=== PATIENT | male | born 1965 | race Caucasian/White ===

== ENCOUNTER 2017-03-31 09:02 | Emergency (ER) | payer MEDICARE, OTHER ==
[~2017-03-31] VITALS: Ht 172.7 cm; Wt 99.8 kg
[2017-03-31 09:02] VITALS: BP_SYST 135
[~2017-03-31 09:02] MED LIST: ALBMDI INH; AMPH20CA7 PO; ASPI-859 PO; ATEN-166 PO; ATOR40TA68 PO; CARB200T PO; CYM30 PO; LOSA100T11 PO; LYR25 PO; OMEP20CA10 PO; TRAZ-126 PO; VIS50 PO; ZIPR20CA2 PO
[2017-03-31] MEDS ORDERED: OLAN5TAB26 PO (10:08)
[2017-03-31] MEDS ORDERED: GLU500 PO (10:08)
[2017-03-31] MEDS ORDERED: ADDERALL PO (10:08)
[2017-03-31 11:30] VITALS: BP_SYST 130
== END 2017-03-31 11:30 | disposition home or self-care (01) ==
LOC: SED 09:02
DX: M25.551 Pain in right hip (principal); L98.9 Disorder of the skin and subcutaneous tissue, unspecified; J44.9 Chronic obstructive pulmonary disease, unspecified; K21.9 Gastro-esophageal reflux disease without esophagitis; I10 Essential (primary) hypertension; E13.29 Other specified diabetes mellitus with other diabetic kidney complication; N28.9 Disorder of kidney and ureter, unspecified; Z79.82 Long term (current) use of aspirin; Z79.899 Other long term (current) drug therapy; Z91.041 Radiographic dye allergy status; Z86.19 Personal history of other infectious and parasitic diseases; V47.5XXA Car driver injured in collision with fixed or stationary object in traffic accident, initial encounter; Y93.89 Activity, other specified; Y92.410 Unspecified street and highway as the place of occurrence of the external cause; Y99.8 Other external cause status
CPT/HCPCS: 72192-TC; 99284

== ENCOUNTER 2018-09-09 05:04 | Emergency (ER) | payer MEDICARE, MEDICAID, OTHER ==
[~2018-09-09] VITALS: Ht 172.7 cm; Wt 88.5 kg
[~2018-09-09 05:04] MED LIST changes: +ADDERALL PO; -ALBMDI INH; -AMPH20CA7 PO; +GLU500 PO; -LOSA100T11 PO; +LOSA100T3 PO; +OLAN5TAB26 PO; -VIS50 PO; -ZIPR20CA2 PO
[2018-09-09] MEDS ORDERED: NACL 0.9% 1,000 ML IV ONE (05:05)
[2018-09-09 05:10] VITALS: BP_SYST 153
[2018-09-09] MEDS ORDERED: ASPIRIN 81 MG TAB.CHEW PO ONE (05:15)
[2018-09-09] MEDS ORDERED: LORazepam 2 MG/ML VIAL (FOR ER USE) IVP ONE ×2 (05:30→07:45)
[2018-09-09 05:54] LABS: BASOPHILS # (AUTO) 0.1 K/uL (0.0-0.2); BASOPHILS % (AUTO) 0.9 % (0.0-2.0); EOSINOPHILS # (AUTO) 0.1 K/uL (0.0-0.4); EOSINOPHILS % (AUTO) 1.2 % (0.0-4.0); HEMATOCRIT 47.6 % (36-54); HEMOGLOBIN 15.9 g/dL (14.0-18.0); LYMPHOCYTES # (AUTO) 1.7 K/uL (1.0-5.5); LYMPHOCYTES % (AUTO) 24.9 % (20.5-51.5); MEAN CORPUSCULAR HEMOGLOBIN 30 pg (27-31); MEAN CORPUSCULAR HGB CONC 34 % (32-36); MEAN CORPUSCULAR VOLUME 91 fL (79.0-98.0); MONOCYTES # (AUTO) 0.4 K/uL (0.0-1.0); MONOCYTES % (AUTO) 6.2 % (1.7-9.3); NEUTROPHILS # (AUTO) 4.4 K/uL (1.8-7.7); NEUTROPHILS % (AUTO) 66.8 % (40.0-70.0); PLATELET COUNT (AUTO) 182 K/uL (130-430); RED BLOOD CELL COUNT(AUTO) 5.26 MIL/uL (4.2-6.2); RED CELL DISTRIBUTION WIDTH 12.3 % (9.0-15.0); WHITE BLOOD COUNT (AUTO) 6.7 K/uL (4.8-10.8)
[2018-09-09 06:04] LABS: ANION GAP 10 (5-15); CALCIUM 9.4 mg/dL (8.4-11.0); CHLORIDE 104 mmol/L (98-107); CREATININE 0.82 mg/dL (0.55-1.30); GLUCOSE 159 mg/dL (70-99); POTASSIUM 3.8 mmol/L (3.5-5.1); SODIUM SERUM 140 mmol/L (136-145); UREA NITROGEN, BLOOD 14 mg/dL (8-21)
[2018-09-09 06:07] LABS: GFR AFRICAN AMERICAN 125 mL/min (>90)
[2018-09-09 06:22] LABS: ALANINE AMINOTRANSFERASE 28 U/L (12-78); ALBUMIN 3.6 g/dL (3.4-4.8); ASPARTATE AMINOTRANSFERASE 24 U/L (10-37); TOTAL BILIRUBIN 0.3 mg/dL (0.0-1.0)
[2018-09-09 06:28] LABS: ACETAMINOPHEN < 1 ug/mL (1-30); ALCOHOL, BLOOD < 3 mg/dL (<10)
[2018-09-09 08:20] LABS: BARBITURATE, URINE NEGATIVE (NEG <=200); BENZODIAZEPINE, URINE POSITIVE (NEG <=150); CANNABINOID, URINE POSITIVE (NEG <=50); COCAINE, URINE NEGATIVE (NEG <=150); METHAMPHETAMINES SCREEN,URINE NEGATIVE (NEG <=500); OPIATE, URINE NEGATIVE (NEG <=100); PHENCYCLIDINE SCREEN,URINE NEGATIVE (NEG <=25); URINE AMPHETAMINE POSITIVE (NEG <=500); URINE METHADONE NEGATIVE (NEG <=200); URINE OXYCODONE SCREEN NEGATIVE (NEG <=100); URINE PROPOXYPHENE SCREEN NEGATIVE (NEG <=300)
[2018-09-09 08:21] LABS: UR TRICYCLIC ANTIDEPRESSANTS NEGATIVE (NEG <=300)
[2018-09-09 08:45] VITALS: BP_SYST 159
== END 2018-09-09 08:45 | disposition short-term general hospital (02) ==
LOC: SED 05:04
DX: R07.89 Other chest pain (principal); K21.9 Gastro-esophageal reflux disease without esophagitis; I12.9 Hypertensive chronic kidney disease with stage 1 through stage 4 chronic kidney disease, or unspecified chronic kidney disease; E11.22 Type 2 diabetes mellitus with diabetic chronic kidney disease; N18.9 Chronic kidney disease, unspecified; F41.9 Anxiety disorder, unspecified; F32.9 Major depressive disorder, single episode, unspecified; F43.10 Post-traumatic stress disorder, unspecified; Z86.19 Personal history of other infectious and parasitic diseases; Z79.899 Other long term (current) drug therapy; Z86.79 Personal history of other diseases of the circulatory system
CPT/HCPCS: 36415; 71045; 80053; 80307; 84484; 85025; 93005; 96374; 96376; 99285; G0480; G0481; G0482; J2060; J7030; 99284

== ENCOUNTER 2018-11-05 22:35 | Emergency (ER) | payer MEDICARE, OTHER ==
[~2018-11-05] VITALS: Ht 172.7 cm; Wt 86.2 kg
[~2018-11-05 22:35] MED LIST changes: -TRAZ-126 PO; +TRAZ-219 PO
[2018-11-05 22:40] VITALS: BP_SYST 141
--- NOTE | 2018-11-05 22:55 | NUR ---
9226 - Patient to ER bed 3 to gown for evaluation. Side rails up.
[2018-11-05] MEDS ORDERED: BACITRACIN 1 GM OINT TP ONE (23:00)
[2018-11-05] MEDS ORDERED: LIDOCAINE 1% 10 MG/ML, 20 ML MDV IJ ONE (23:00)
--- NOTE | 2018-11-05 23:05 | NUR ---
2305 - ER at bedside examining patient.
--- NOTE | 2018-11-05 23:10 | NUR ---
[id number] - Patient given written and verbal discharge instructions and verbalizes understanding. ER MD discussed with patient the results and treatment provided. Patient in stable condition. ID arm band removed. IV catheter removed intact and dressing applied, no active bleeding. Rx of keflex, tylenol given. Patient educated on pain management and to follow up with PMD. Opportunity for questions provided and answered. Medication side effect fact sheet provided. AMbulatory w/ steady gait, A&OX4
[2018-11-05 23:15] VITALS: BP_SYST 141
== END 2018-11-05 23:15 | disposition home or self-care (01) ==
LOC: SED 22:35
DX: L02.212 Cutaneous abscess of back [any part, except buttock and flank] (principal); L73.9 Follicular disorder, unspecified; J44.9 Chronic obstructive pulmonary disease, unspecified; K21.9 Gastro-esophageal reflux disease without esophagitis; E11.9 Type 2 diabetes mellitus without complications; I10 Essential (primary) hypertension; F41.9 Anxiety disorder, unspecified; F32.9 Major depressive disorder, single episode, unspecified; Z86.19 Personal history of other infectious and parasitic diseases; Z86.79 Personal history of other diseases of the circulatory system; Z79.899 Other long term (current) drug therapy
CPT/HCPCS: 10060; 99283; J2001

== ENCOUNTER 2019-01-05 07:20 | Emergency (ER) | payer MEDICARE, OTHER ==
[~2019-01-05] VITALS: Ht 172.7 cm; Wt 77.1 kg
[2019-01-05 07:20] VITALS: BP_SYST 161
[2019-01-05] MEDS ORDERED: KETOROLAC TROMETHAMINE 30 MG VIAL IVP ONE (07:45)
[2019-01-05] MEDS ORDERED: NACL 0.9% 1,000 ML IV ONE (07:45)
[2019-01-05 08:08] LABS: BASOPHILS % (AUTO) 0.3 % (0.0-2.0); EOSINOPHILS % (AUTO) 0.2 % (0.0-4.0); HEMATOCRIT 35.5 % (36-54); HEMOGLOBIN 12.1 g/dL (14.0-18.0); LYMPHOCYTES # (AUTO) 0.9 K/uL (1.0-5.5); LYMPHOCYTES % (AUTO) 8.5 % (20.5-51.5); MEAN CORPUSCULAR HEMOGLOBIN 30 pg (27-31); MEAN CORPUSCULAR HGB CONC 34 % (32-36); MEAN CORPUSCULAR VOLUME 88 fL (79.0-98.0); MONOCYTES # (AUTO) 0.7 K/uL (0.0-1.0); MONOCYTES % (AUTO) 7.4 % (1.7-9.3); NEUTROPHILS # (AUTO) 8.4 K/uL (1.8-7.7); NEUTROPHILS % (AUTO) 83.6 % (40.0-70.0); PLATELET COUNT (AUTO) 118 K/uL (130-430); RED BLOOD CELL COUNT(AUTO) 4.03 MIL/uL (4.2-6.2); RED CELL DISTRIBUTION WIDTH 13.1 % (9.0-15.0); WHITE BLOOD COUNT (AUTO) 10.1 K/uL (4.8-10.8)
[2019-01-05 08:33] LABS: CALCIUM 9.3 mg/dL (8.4-11.0); CREATININE 0.62 mg/dL (0.55-1.30); POTASSIUM 3.6 mmol/L (3.5-5.1)
[2019-01-05 08:37] LABS: ALBUMIN 2.8 g/dL (3.4-4.8); TOTAL BILIRUBIN 0.7 mg/dL (0.0-1.0)
[2019-01-05 09:25] LABS: BILIRUBIN,URINE NEGATIVE (NEGATIVE); BLOOD, URINE NEGATIVE (NEGATIVE); CLARITY/URINE CLEAR (CLEAR); COLOR,URINE YELLOW (YELLOW); GLUCOSE,URINE NEGATIVE (NEGATIVE); KETONES,URINE 2+ (NEGATIVE); LEUKOCYTE ESTERASE ,URINE NEGATIVE (NEGATIVE); NITRITE, URINE NEGATIVE (NEGATIVE); PROTEIN URINE 1+ (NEGATIVE); UROBILINOGEN,URINE 0.2 (0.2-1.0)
[2019-01-05] MEDS ORDERED: MAGNESIUM SULFATE 1 GM in NS 100 ML IV ONE (09:30)
[2019-01-05] MEDS ORDERED: MAGNESIUM SULFATE 1 GM/2 ML VIAL ONE (09:36)
[2019-01-05 09:41] LABS: BACTERIA,URINE FEW /HPF (None Seen); MUCUS,URINE 1+ /LPF (None Seen); RBC,URINE 0-3 /HPF (0-3); WBC,URINE 0-3 /HPF (0-3)
[2019-01-05] MEDS ORDERED: POTASSIUM CHLORIDE 20 MEQ TAB.PRT.SR PO ONE (09:45)
[2019-01-05 11:27] VITALS: BP_SYST 155
== END 2019-01-05 11:27 | disposition home or self-care (01) ==
LOC: SED 07:20
DX: R25.2 Cramp and spasm (principal); J44.9 Chronic obstructive pulmonary disease, unspecified; I11.9 Hypertensive heart disease without heart failure; F32.9 Major depressive disorder, single episode, unspecified; F41.9 Anxiety disorder, unspecified; Z79.84 Long term (current) use of oral hypoglycemic drugs; Z79.899 Other long term (current) drug therapy
CPT/HCPCS: 36415; 80053; 81000; 83690; 83735; 85025; 96365; 96375; 99283; J1885; J3475; J7030

== ENCOUNTER 2019-05-26 19:29 | Emergency (ER) | payer MEDICARE, OTHER ==
[~2019-05-26] VITALS: Ht 172.7 cm; Wt 86.2 kg
[~2019-05-26 19:29] MED LIST changes: -OMEP20CA10 PO; +OMEP20CA11 PO
[2019-05-26 19:40] VITALS: BP_SYST 140
--- NOTE | 2019-05-26 19:40 | NUR ---
Pt ambulatory to bed 8 for evaluation
--- NOTE | 2019-05-26 19:50 | NUR ---
Patient presents to ER for complaint of right thigh/groin 8/10 pain x 4 days. Patient states limited movement to site and states no recent injury to site. Patient also states that he has previously had 2 tumors removed from same site but in unable to provide dates. Patient states he recently had ultrasound to site but states "I am messed up, ma'am, during the war, I just know there is something wrong". Patient has hx of PTSD, hypercholesteremia, HTN, and DM. No other symptoms or complaints.
[2019-05-26] MEDS ORDERED: PREG100C54 PO (20:12)
[2019-05-26] MEDS ORDERED: BUSP10TA3 PO (20:14)
[2019-05-26] MEDS ORDERED: DICL100G19 TP (20:17)
[2019-05-26] MEDS ORDERED: ALBU8.5H8 INH (20:18)
[2019-05-26] MEDS ORDERED: DEXT30DR6 EACH EYE (20:18)
[2019-05-26] MEDS ORDERED: OMEG-143 PO (20:20)
[2019-05-26] MEDS ORDERED: AMPH30CA7 PO (20:20)
--- NOTE | 2019-05-26 20:20 | NUR ---
GRAHAM Escalera at bedside for medical evaluation.
[2019-05-26] MEDS ORDERED: [UNRECOGNIZED DRUG - OTHER] PO (20:22)
[2019-05-26] MEDS ORDERED: VITA1CAP PO (20:23)
[2019-05-26] MEDS ORDERED: MULT-1238 PO (20:24)
[2019-05-26] MEDS ORDERED: CHOL500013 PO (20:24)
[2019-05-26] MEDS ORDERED: MILK1TAB PO (20:25)
[2019-05-26] MEDS ORDERED: [UNRECOGNIZED DRUG - OTHER] PO (20:26)
[2019-05-26 20:57] LABS: BASOPHILS % (AUTO) 0.4 % (0.0-2.0); EOSINOPHILS # (AUTO) 0.1 K/uL (0.0-0.4); EOSINOPHILS % (AUTO) 1.3 % (0.0-4.0); HEMATOCRIT 45.8 % (36-54); HEMOGLOBIN 15.7 g/dL (14.0-18.0); LYMPHOCYTES # (AUTO) 2.3 K/uL (1.0-5.5); LYMPHOCYTES % (AUTO) 37.5 % (20.5-51.5); MEAN CORPUSCULAR HEMOGLOBIN 30 pg (27-31); MEAN CORPUSCULAR HGB CONC 34 % (32-36); MEAN CORPUSCULAR VOLUME 87 fL (79.0-98.0); MONOCYTES # (AUTO) 0.5 K/uL (0.0-1.0); MONOCYTES % (AUTO) 8.5 % (1.7-9.3); NEUTROPHILS # (AUTO) 3.2 K/uL (1.8-7.7); NEUTROPHILS % (AUTO) 52.3 % (40.0-70.0); PLATELET COUNT (AUTO) 177 K/uL (130-430); RED BLOOD CELL COUNT(AUTO) 5.25 MIL/uL (4.2-6.2); RED CELL DISTRIBUTION WIDTH 13.9 % (9.0-15.0); WHITE BLOOD COUNT (AUTO) 6.1 K/uL (4.8-10.8)
[2019-05-26 21:04] LABS: CALCIUM 9.5 mg/dL (8.4-11.0); CREATININE 0.89 mg/dL (0.55-1.30); POTASSIUM 3.8 mmol/L (3.5-5.1)
[2019-05-26 21:10] LABS: ALBUMIN 3.9 g/dL (3.4-4.8); TOTAL BILIRUBIN 0.6 mg/dL (0.0-1.0)
[2019-05-26] MEDS ORDERED: OXYCODONE/ACETAMINOPHEN 5-325 TABLET PO ONE (21:30)
--- NOTE | 2019-05-26 21:48 | NUR ---
Medication dispensed to patient by MD Escalera. Patient instructed to take medication once he gets home. Patient verbalized understanding.
[2019-05-26 21:58] VITALS: BP_SYST 132
--- NOTE | 2019-05-26 21:58 | NUR ---
Patient given written and verbal discharge instructions and verbalizes understanding. ER MD discussed with patient the results and treatment provided. Patient in stable condition. ID arm band removed. No Rx given. Patient educated on pain management and to follow up with PMD. Pain Scale 2/10 tolerable to patient. Opportunity for questions provided and answered.
== END 2019-05-26 21:58 | disposition home or self-care (01) ==
LOC: SED 19:29
DX: D17.24 Benign lipomatous neoplasm of skin and subcutaneous tissue of left leg (principal); J44.9 Chronic obstructive pulmonary disease, unspecified; K21.9 Gastro-esophageal reflux disease without esophagitis; I12.9 Hypertensive chronic kidney disease with stage 1 through stage 4 chronic kidney disease, or unspecified chronic kidney disease; E11.22 Type 2 diabetes mellitus with diabetic chronic kidney disease; N18.9 Chronic kidney disease, unspecified; F41.9 Anxiety disorder, unspecified; F32.9 Major depressive disorder, single episode, unspecified; F43.10 Post-traumatic stress disorder, unspecified; Z86.19 Personal history of other infectious and parasitic diseases; Z86.79 Personal history of other diseases of the circulatory system; Z79.899 Other long term (current) drug therapy
CPT/HCPCS: 36415; 80053; 85025; 99283

== ENCOUNTER 2019-07-03 03:59 | Emergency (ER) | payer MEDICARE, OTHER ==
[~2019-07-03] VITALS: Ht 172.7 cm; Wt 81.6 kg
[~2019-07-03 03:59] MED LIST changes: -ADDERALL PO; +ALBU8.5H8 INH; +AMPH30CA7 PO; +BUSP10TA3 PO; +CHOL500013 PO; +DEXT30DR6 EACH EYE; +DICL100G19 TP; -LYR25 PO; +MILK1TAB PO; +MULT-1238 PO; -OLAN5TAB26 PO; +OMEG-143 PO; +PREG100C54 PO; +VITA1CAP PO; +[UNRECOGNIZED DRUG - OTHER] PO; +[UNRECOGNIZED DRUG - OTHER] PO
[2019-07-03 04:03] VITALS: BP_SYST 140
--- NOTE | 2019-07-03 04:05 | NUR ---
Patient to ER bed 3 for evaluation. Side rails up.
--- NOTE | 2019-07-03 04:30 | NUR ---
Patient left without being seen at this time.
== END 2019-07-03 04:30 | disposition left against medical advice (07) ==
LOC: SED 03:59
DX: M54.2 Cervicalgia (principal); Z53.21 Procedure and treatment not carried out due to patient leaving prior to being seen by health care provider

== ENCOUNTER 2019-12-16 04:35 | Emergency (ER) | payer MEDICARE, OTHER ==
[~2019-12-16] VITALS: Ht 177.8 cm; Wt 88.5 kg
[2019-12-16 04:35] VITALS: BP_SYST 142
[2019-12-16] MEDS ORDERED: NACL 0.9% 1,000 ML IV ONE (04:39)
[2019-12-16] MEDS ORDERED: DIPHENHYDRAMINE INJ 50 MG/ML VIAL IVP ONE ×2 (04:45→05:45)
[2019-12-16] MEDS ORDERED: ONDANSETRON HCL 4 MG/2 ML VIAL IVP ONE (04:45)
[2019-12-16] MEDS ORDERED: MORPHINE 4 MG/ML INJ. SYRINGE IVP ONE (04:45)
[2019-12-16 05:07] LABS: BASOPHILS % (AUTO) 0.4 % (0.0-2.0); EOSINOPHILS # (AUTO) 0.1 K/uL (0.0-0.4); EOSINOPHILS % (AUTO) 1.5 % (0.0-4.0); HEMATOCRIT 39.7 % (36-54); HEMOGLOBIN 13.7 g/dL (14.0-18.0); LYMPHOCYTES # (AUTO) 1.2 K/uL (1.0-5.5); LYMPHOCYTES % (AUTO) 20.3 % (20.5-51.5); MEAN CORPUSCULAR HEMOGLOBIN 30 pg (27-31); MEAN CORPUSCULAR HGB CONC 34 % (32-36); MEAN CORPUSCULAR VOLUME 88 fL (79.0-98.0); MONOCYTES # (AUTO) 0.8 K/uL (0.0-1.0); MONOCYTES % (AUTO) 13.4 % (1.7-9.3); NEUTROPHILS # (AUTO) 3.7 K/uL (1.8-7.7); NEUTROPHILS % (AUTO) 64.4 % (40.0-70.0); PLATELET COUNT (AUTO) 265 K/uL (130-430); RED BLOOD CELL COUNT(AUTO) 4.51 MIL/uL (4.2-6.2); RED CELL DISTRIBUTION WIDTH 13.1 % (9.0-15.0); WHITE BLOOD COUNT (AUTO) 5.7 K/uL (4.8-10.8)
[2019-12-16] MEDS ORDERED: TRAZ-219 PO (05:07)
[2019-12-16] MEDS ORDERED: ALBU90AE PO (05:07)
[2019-12-16] MEDS ORDERED: POLY15DR31 BOTH EYES (05:07)
[2019-12-16] MEDS ORDERED: PREG300C PO (05:07)
[2019-12-16] MEDS ORDERED: HYDR50TA61 PO (05:07)
[2019-12-16] MEDS ORDERED: AMPH30CA7 PO (05:07)
[2019-12-16] MEDS ORDERED: INHA1EAC9 MC (05:07)
[2019-12-16] MEDS ORDERED: CARB200C4 PO ×2 (05:07)
[2019-12-16] MEDS ORDERED: METF500T20 PO (05:07)
[2019-12-16] MEDS ORDERED: BRI.2% LEFT EYE (05:07)
[2019-12-16] MEDS ORDERED: OMEP-268 PO (05:07)
[2019-12-16] MEDS ORDERED: [UNRECOGNIZED DRUG - OTHER] PO (05:07)
[2019-12-16] MEDS ORDERED: MENS MULTIVITAMIN PO (05:07)
[2019-12-16] MEDS ORDERED: DETOX PO (05:07)
[2019-12-16] MEDS ORDERED: [UNRECOGNIZED DRUG - OTHER] PO (05:07)
[2019-12-16] MEDS ORDERED: [UNRECOGNIZED DRUG - CODE] PO (05:07)
[2019-12-16] MEDS ORDERED: DULO60CA65 PO (05:07)
[2019-12-16] MEDS ORDERED: OMEG1CAP18 PO (05:07)
[2019-12-16] MEDS ORDERED: BUSP15TA3 PO (05:07)
[2019-12-16] MEDS ORDERED: LIP40 PO (05:07)
[2019-12-16] MEDS ORDERED: VITA1CAP PO (05:07)
[2019-12-16] MEDS ORDERED: CHOL50004 PO (05:07)
[2019-12-16] MEDS ORDERED: LOSA100T23 PO (05:07)
[2019-12-16] MEDS ORDERED: DICL100G19 TP (05:07)
[2019-12-16] MEDS ORDERED: [UNRECOGNIZED DRUG - OTHER] PO (05:07)
[2019-12-16] MEDS ORDERED: LATA7.5D BOTH EYES (05:07)
[2019-12-16] MEDS ORDERED: MORPHINE 2 MG/ML INJ. SYRINGE IVP ONE (05:45)
[2019-12-16] MEDS ORDERED: LORazepam 2 MG/ML VIAL IVP ONE (06:00)
[2019-12-16 06:10] LABS: CALCIUM 9.3 mg/dL (8.4-11.0); CREATININE 0.72 mg/dL (0.55-1.30); POTASSIUM 4.2 mmol/L (3.5-5.1)
[2019-12-16 06:14] LABS: ALBUMIN 3.1 g/dL (3.4-4.8); TOTAL BILIRUBIN 0.4 mg/dL (0.0-1.0)
[2019-12-16] MEDS ORDERED: KETOROLAC TROMETHAMINE 15 MG VIAL IVP ONE (06:30)
[2019-12-16 07:28] VITALS: BP_SYST 136
[2019-12-16] MEDS ORDERED: HYDROcodone/ACETAMIN 10-325 MG TAB PO ONE (09:00)
== END 2019-12-16 07:28 | disposition home or self-care (01) ==
LOC: SED 04:35
DX: S16.1XXA Strain of muscle, fascia and tendon at neck level, initial encounter (principal); I10 Essential (primary) hypertension; E11.9 Type 2 diabetes mellitus without complications; F32.9 Major depressive disorder, single episode, unspecified; F41.9 Anxiety disorder, unspecified; Z88.8 Allergy status to other drugs, medicaments and biological substances; W06.XXXA Fall from bed, initial encounter; Y93.89 Activity, other specified; Y92.89 Other specified places as the place of occurrence of the external cause; Y99.8 Other external cause status
CPT/HCPCS: 36415; 72125; 80053; 85025; 96374; 96375; 96376; 99284; J1200; J1885; J2060; J2270 ×2; J2405; J7030; 99283

== ENCOUNTER 2019-12-16 17:26 | Emergency (ER) | payer MEDICARE, OTHER ==
[~2019-12-16] VITALS: Ht 177.8 cm; Wt 88.5 kg
[~2019-12-16 17:26] MED LIST changes: +ALBU90AE PO; +BRI.2% LEFT EYE; +BUSP15TA3 PO; +CARB200C4 PO; +CHOL50004 PO; +DETOX PO; +DULO60CA65 PO; +HYDR50TA61 PO; +INHA1EAC9 MC; +LATA7.5D BOTH EYES; +LIP40 PO; +LOSA100T23 PO; +MENS MULTIVITAMIN PO; +METF500T20 PO; +OMEG1CAP18 PO; +OMEP-268 PO; +POLY15DR31 BOTH EYES; +PREG300C PO; +[UNRECOGNIZED DRUG - CODE] PO; +[UNRECOGNIZED DRUG - OTHER] PO; +[UNRECOGNIZED DRUG - OTHER] PO; +[UNRECOGNIZED DRUG - OTHER] PO
[2019-12-16 17:43] VITALS: BP_SYST 150
[2019-12-16] MEDS ORDERED: HYDROmorphone 1 MG INJ. 1 MG/ML AMPUL IVP ONE (17:45)
[2019-12-16] MEDS ORDERED: HYDROmorphone 2 MG/ML VIAL ONE (18:25)
[2019-12-16 18:49] VITALS: BP_SYST 150
== END 2019-12-16 18:55 | disposition home or self-care (01) ==
LOC: SED 17:26
DX: M54.2 Cervicalgia (principal); F41.9 Anxiety disorder, unspecified; J44.9 Chronic obstructive pulmonary disease, unspecified; E11.29 Type 2 diabetes mellitus with other diabetic kidney complication; N28.9 Disorder of kidney and ureter, unspecified; K21.9 Gastro-esophageal reflux disease without esophagitis; F09 Unspecified mental disorder due to known physiological condition; F12.90 Cannabis use, unspecified, uncomplicated; Z86.73 Personal history of transient ischemic attack (TIA), and cerebral infarction without residual deficits; Z86.19 Personal history of other infectious and parasitic diseases; Z79.899 Other long term (current) drug therapy; Z88.6 Allergy status to analgesic agent
CPT/HCPCS: 99283; J1170

== ENCOUNTER 2020-07-06 18:15 | Emergency (ER) | payer MEDICARE, OTHER ==
[~2020-07-06] VITALS: Ht 172.7 cm; Wt 91.6 kg
[~2020-07-06 18:15] MED LIST changes: -ALBU8.5H8 INH; -ASPI-859 PO; -ATEN-166 PO; -ATOR40TA68 PO; -BUSP10TA3 PO; -CARB200T PO; -CHOL500013 PO; -CYM30 PO; -DEXT30DR6 EACH EYE; -GLU500 PO; -LOSA100T3 PO; +METF-1069 PO; -METF500T20 PO; -MILK1TAB PO; -MULT-1238 PO; -OMEG-143 PO; -OMEP20CA11 PO; -PREG100C54 PO; -TRAZ-219 PO; +TRAZ-251 PO; -[UNRECOGNIZED DRUG - OTHER] PO; -[UNRECOGNIZED DRUG - OTHER] PO
--- NOTE | 2020-07-06 18:28 | NUR ---
Patient triaged and placed in waiting room. VSS and patient appears in no acute distress at this time. Accompanied by service dog, awaiting available bed, and MD notified of need for MSE.
--- NOTE | 2020-07-06 18:55 | NUR ---
Patient to ER bed 3 to gown for evaluation. Side rails up.
--- NOTE | 2020-07-06 19:20 | NUR ---
ER DR. ARREOLA AT THE BEDSIDE EVALUATING PT
[2020-07-06] MEDS ORDERED: KETOROLAC TROMETHAMINE 60 MG/2 ML VIAL IM ONE (19:30)
--- NOTE | 2020-07-06 19:30 | NUR ---
PT PRESENTS FROM HOME WITH C/O NECK PAIN ON THE RIGHT SIDE RADIATING UP TO RIGHT EAR AND RIGHT EYE. ALSO RADIATES DOWN TO RIGHT LEG AND FOOT. REPORTS HX OF NECK AND BACK SURGURY. PT IS AAOX4, V/S STABLE
[2020-07-06 20:25] VITALS: BP_SYST 136
--- NOTE | 2020-07-06 20:25 | NUR ---
Patient given written and verbal discharge instructions and verbalizes understanding. ER MD discussed with patient the results and treatment provided. Patient in stable condition. ID arm band removed. Rx of NAPROSYN given. Patient educated on pain management and to follow up with PMD. Pain Scale 2/10. Opportunity for questions provided and answered. Medication side effect fact sheet provided.
== END 2020-07-06 20:25 | disposition home or self-care (01) ==
LOC: SED 18:15
DX: S16.1XXA Strain of muscle, fascia and tendon at neck level, initial encounter (principal); F41.9 Anxiety disorder, unspecified; F09 Unspecified mental disorder due to known physiological condition; J44.9 Chronic obstructive pulmonary disease, unspecified; K21.9 Gastro-esophageal reflux disease without esophagitis; E11.29 Type 2 diabetes mellitus with other diabetic kidney complication; N28.9 Disorder of kidney and ureter, unspecified; I10 Essential (primary) hypertension; Z86.73 Personal history of transient ischemic attack (TIA), and cerebral infarction without residual deficits; Z86.19 Personal history of other infectious and parasitic diseases; Z88.6 Allergy status to analgesic agent; X50.3XXA Overexertion from repetitive movements, initial encounter; Y93.89 Activity, other specified; Y92.89 Other specified places as the place of occurrence of the external cause; Y99.8 Other external cause status
CPT/HCPCS: 96372; 99283; J1885